=== PATIENT | female | born 1970 | race Asian ===

== ENCOUNTER 2020-05-25 10:29 | Day surgery (SDC) | payer OTHER, SELFPAY ==
[~2020-05-25] VITALS: Ht 162.6 cm; Wt 86.2 kg
[2020-05-25] MEDS ORDERED: NALOXONE 0.4 MG/ML VIAL ONE (13:54)
[2020-05-25] MEDS ORDERED: fentaNYL citrate 0.05 MG/ML VIAL ONE (13:54)
[2020-05-25] MEDS ORDERED: FLUMAZENIL 0.5 MG/5 ML VIAL IVP ONE (13:54)
[2020-05-25] MEDS ORDERED: LIDOCAINE 2% 100 MG/5 ML UJET TP ONE (13:55)
[2020-05-25] MEDS ORDERED: fentaNYL citrate 0.05 MG/ML VIAL IVP ONE (14:45)
== END 2020-05-25 15:45 | disposition home or self-care (01) ==
LOC: MMU 10:29 → MDS 10:29
PROVIDERS: ATTEND Internal Medicine Gastroenterology
DX: Z12.11 Encounter for screening for malignant neoplasm of colon (principal); Z20.828 Contact with and (suspected) exposure to other viral communicable diseases; E66.9 Obesity, unspecified; Z85.3 Personal history of malignant neoplasm of breast
CPT/HCPCS: 45378; 81025; J3010; U0003; J2310; J3490